=== PATIENT | female | born 1960 | race Caucasian/White ===

== ENCOUNTER 2018-03-04 23:37 | Inpatient (IN) | payer OTHER ==
[2018-03-05] MEDS ORDERED: Morphine 4 MG/ML VIAL ONE (00:25)
[2018-03-05] MEDS ORDERED: Dextrose 50% Abboject 50 ML SYRINGE SLOW IVP PRN (01:26)
[2018-03-05] MEDS ORDERED: Ondansetron HCl/PF 4 MG/2 ML Vial IVP PRN ×3 (01:26→12:27)
[2018-03-05] MEDS ORDERED: Ondansetron ODT 4 MG TAB PO PRN ×2 (01:26→12:27)
[2018-03-05] MEDS ORDERED: Dextrose 5% in Water 1,000 ML IV PRN (01:26)
[2018-03-05 01:38] LABS: #Monocytes 0.9 thou/uL (0.11-0.59); #Neutrophils 13.4 thou/uL (1.40-6.50); %Basophils 0.2 % (0.0-1.0); %Eosinophils 0.1 % (0.0-10.0); %Lymphocytes 6.4 % (21.0-51.0); %Neutrophils 87.3 % (42.0-75.0); Mean Corpuscular HGB CONC 34.3 g/dL (32.0-36.0); Mean Corpuscular Hemoglobin 30.8 pg (27.0-31.0); Mean Corpuscular Volume 89.6 fl (81.0-99.0); Mean Platelet Volume 6.3 fL (7.4-10.4); Platelet Count 228 thou/uL (130-400); RBC Distribution Width 11.2 % (11.5-14.5); Red Blood Cell (RBC) Count 3.57 mill/uL (4.20-5.40); White Blood Cell (WBC) Count 15.4 thou/uL (4.8-10.8)
[2018-03-05] MEDS ORDERED: traMADol HCl 50 MG TAB PO PRN (01:42)
[2018-03-05 02:24] LABS: ALT (SGPT) 16 U/L (8-55); AST (SGOT) 25 U/L (5-34); Albumin 4.2 g/dL (3.5-5.0); Alkaline Phosphatase 54 U/L (40-150); Anion Gap 9 mmol/L (10-20); BUN (Urea Nitrogen) 16 mg/dL (9.8-20.1); Bilirubin, Total 0.4 mg/dL (0.2-1.2); CK (CPK) 124 U/L (29-168); Calc. Creatinine Clearance 0 mL/min (70-130); Calcium 8.5 mg/dL (7.8-10.44); Carbon Dioxide 28 mmol/L (22-29); Chloride 104 mmol/L (98-107); Estimated GFR-MDRD 88; Globulin 2.7 g/dL (2.4-3.5); Glucose 133 mg/dL (70-105); Potassium 3.8 mmol/L (3.5-5.1); Protein, Total 6.9 g/dL (6.0-8.3); Sodium 137 mmol/L (136-145)
[2018-03-05 02:27] LABS: CKMB 0.7 ng/mL (0-6.6); Troponin I Less than 0.010 ng/mL (< 0.028)
--- NOTE | 2018-03-05 03:02 | HP ---
DATE OF ADMISSION: 03/05/2018 ATTENDING PHYSICIAN: Dr. Chapito Sosa. TRAUMA ACTIVATION: Not applicable. HISTORY OF PRESENT ILLNESS: Naveed Gunn is a 57-year-old female who presented to [facility] as a [place] transfer. Per patient, she was working in her garden when she was trying to remove her dog from the garden, tripped and fell landing on her hip. She was evaluated in the [facility], found to have a right hip fracture. Orthopedic Surgery was notified. Patient was transferred to [facility] and Trauma Services was asked to admit. Upon my evaluation, patient has a chief complaint of right hip pain rated as 6 or 7. Pain is worsened with movement and improved with pain medications. Patient states that she did not hit her head or lose consciousness at any time. She vocalizes no other complaint. ALLERGIES: COMPAZINE. HOME MEDICATIONS: Seroquel 50 mg at bedtime, Lexapro 10 mg at bedtime, Xanax 1 mg b.i.d. p.r.n., ibuprofen ogve-ugx-varvphs p.r.n. PAST MEDICAL HISTORY: Significant for anxiety, depression, osteoarthritis, rheumatoid arthritis. PAST SURGICAL HISTORY: Right shoulder and right knee surgery in 2012. SOCIAL HISTORY: She lives at home with her , ambulates independently. She is a current smoker, approximately 35 years, half pack per day. She endorses rare EtOH and occasional marijuana use. FAMILY HISTORY: Significant for a sister with CHF, status post AICD, breast cancer in mother who is from hepatitis C and a father with coronary artery disease, status post bypass. REVIEW OF SYSTEMS: A 10-point review of systems was performed and negative except as indicated in the HPI. PHYSICAL EXAMINATION: VITAL SIGNS: On evaluation include heart rate 83, blood pressure 136/75, O2 sat 100% on 1-2 liters via nasal cannula. GENERAL: A well-nourished, thin female in no acute distress, resting in bed. HEAD: Normocephalic, atraumatic. EYES: Pupils were PERRL. Extraocular movements are intact. NECK: Supple. Trachea is midline. CHEST/PULMONARY: Atraumatic. Normal breathing, symmetric rise. LUNGS: Clear to auscultation bilaterally. CARDIOVASCULAR: Regular rate and rhythm. No obvious murmurs, rubs, or gallops. GASTROINTESTINAL: Abdomen is atraumatic, soft, nontender, nondistended. Bowel sounds are positive. MUSCULOSKELETAL/BACK: Reported as being within normal limits. EXTREMITIES: Left upper extremity within normal limits. Right upper extremity with a posterior abrasion in the area of elbow. Pulses are 2+ bilaterally. Left lower extremity within normal limits. Pulses are 2+. Right lower extremity is shortened with swelling to the hip and thigh. She is neurovascularly intact distal to the side of her injury. Compartments are soft. There is tenderness to palpation of the anterior, posterior, and lateral thigh. NEUROLOGIC: GCS is 15. No focal deficit is noted. LABORATORY DATA: WBC 6.9, hemoglobin 12.0, hematocrit 36.2, platelet count 249, 000. Sodium 141, potassium 4.0, chloride 104, carbon dioxide 27, BUN 17, creatinine 0.8, glucose 125, AST and ALT within normal limits. Urinalysis pending. EKG: Sinus rhythm with nonspecific T-wave changes. RADIOLOGIC FINDINGS: Chest x-ray, official read is pending. Lungs appear hyperinflated with coarse interstitial markings. X-ray of the right femur shows a proximal femur fracture. Films from [facility], official read is unavailable, but there is obvious right proximal femur fracture and a right hip x-ray with the same. ASSESSMENT: 1. Status post mechanical ground level fall. 2. Proximal hip fracture. 3. Acute traumatic pain. 4. History of rheumatoid arthritis. 5. History of osteoarthritis. 6. History of anxiety and depression. 7. Nonspecific EKG. PLAN: Admit to Trauma Services. We have discussed the case with Orthopedic Surgery who plans for operative intervention later today. Followup pending laboratory items. Perioperative pain management initially with IV and PO analgesics. Postoperative PT and OT. DVT and gastritis prophylaxis as appropriate. Plans for admission were discussed with the patient at bedside who vocalized her understanding. All questions were answered at the time of this dictation. Trauma attending has been notified of admission. SWATI
[2018-03-05] MEDS: traMADol HCl 50 MG TAB PO SCH ×4 (03:10→20:21)
[2018-03-05] MEDS: Acetaminophen 500 MG TAB PO SCH ×4 (03:13→20:20)
[2018-03-05] MEDS: Sodium Chloride 0.9% 1,000 ML IV SCH ×3 (03:14→20:22)
[2018-03-05 04:10] VITALS: BMI 23.4
[2018-03-05] MEDS: Ketorolac Tromethamine 30 MG/ML VIAL IVP SCH ×3 (06:08→18:26)
[2018-03-05 07:30] LABS: Bilirubin Negative (Negative); Blood, Urine Trace (Negative); Clarity CLEAR (Clear); Glucose, Urine (Dipstick) Negative (Negative); Leukocyte Negative (Negative); Nitrite Negative (Negative); Protein, Urine (Dipstick) Negative (Neg-Trace); Specific Gravity, Urine 1.021 (1.002-1.036); Urobilinogen 0.2 mg/dL (0.2-1.0)
[2018-03-05 07:31] LABS: Bacteria/HPF None Seen HPF (None Seen); Hyaline Casts/LPF 0-3 HYALINE CAST LPF (0-3 Hyaline); Pathc Cast-AUWi Flag 0.58 (0-2.49); Squamous Epithelial None Seen HPF (0-3); WBC/HPF 0-3 HPF (0-3)
--- NOTE | 2018-03-05 09:12 | HP ---
CHIEF COMPLAINT: Right thigh pain. HISTORY OF PRESENT ILLNESS: The patient is a 57-year-old female who was climbing around on a garden that was about 3-4 feet high when she slipped and fell. She says she actually fell on her left hip, but her right hip became excruciatingly painful and swollen and she could not put weight on it. She was taken to the emergency room in [place] where they did x-rays and noted she had a proximal right femur fracture. PAST MEDICAL HISTORY: Depression, anxiety. PAST SURGICAL HISTORY: She has had a right rotator cuff repair. MEDICATIONS: She takes Xanax, Seroquel, and Lexapro. ALLERGIES: She has no known drug allergies. SOCIAL HISTORY: She smokes about 1 pack per day. No alcohol. She is . She lives just outsi [facility]. FAMILY HISTORY: Unremarkable. PHYSICAL EXAMINATION: VITAL SIGNS: Temperature 98.6, pulse 59, blood pressure 132/74. GENERAL: She is a well-developed, well-nourished female in traction, awake, alert. HEENT: Unremarkable. LUNGS: Clear. HEART: Regular rate and rhythm. ABDOMEN: Soft, nondistended, nontender. EXTREMITIES: She has a soft tissue swelling of the right thigh, it is tender in the proximal thigh o n the right. She has good sensation. Normal pulses. Pelvis appears okay. No tenderness. The left side is unremarkable. IMAGING: EKG shows sinus bradycardia at 63. X-ray shows proximal femur fracture. ASSESSMENT: Proximal femur fracture on the right. PLAN: Per Orthopedics.
[2018-03-05] MEDS: Morphine 4 MG/ML VIAL SLOW IVP PRN ×3 (09:45→23:45)
--- NOTE | 2018-03-05 10:19 | RAD ---
PORTABLE SUPINE CHEST 1 VIEW: Date: 03/05/18 HISTORY: 57-year-old female with history of preoperative clearance. FINDINGS: Heart size is normal. The lunges are clear. Mild biapical pleural thickening. IMPRESSION: Mild biapical pleural thickening. No acute intrathoracic disease. POS: [facility]
--- NOTE | 2018-03-05 10:20 | RAD ---
RIGHT FEMUR 1 VIEW: Date: 03/05/18 HISTORY: 57-year-old female with history of right femoral pain. FINDINGS: There is a markedly comminuted fracture of the intertrochanteric and subtrochanteric region of the ri ght femur with considerable foreshortening and malalignment. IMPRESSION: Markedly comminuted intertrochanteric and subtrochanteric femoral fracture with foreshortening and ma lalignment. POS: [facility]
[2018-03-05] MEDS ORDERED: Neomycin-Polymyxin 1 ML AMP ONE (10:49)
[2018-03-05] MEDS ORDERED: Midazolam HCl 2 mg/2 ml Vial ONE (10:59)
[2018-03-05] MEDS ORDERED: CEFAZOLIN/Water 2 GM/20 ML SYRINGE ONE (11:00)
[2018-03-05] MEDS ORDERED: Fentanyl 100 MCG/2 ML VIAL ONE ×2 (11:16→12:36)
[2018-03-05] MEDS ORDERED: PROPOFOL 20 ML ONE (11:17)
[2018-03-05] MEDS ORDERED: ePHEDrine/0.9% NaCl/PF SYRINGE 50 mg/10 ml ONE ×2 (11:25→14:19)
[2018-03-05] MEDS ORDERED: Fleet Enema 133 ML BOT PR PRN (12:27)
[2018-03-05] MEDS ORDERED: Promethazine HCl 25 MG/ML VIAL SLOW IVP PRN (12:27)
[2018-03-05] MEDS ORDERED: Bisacodyl 10 MG SUPP PR PRN (12:27)
[2018-03-05] MEDS ORDERED: Milk Of Magnesia 30 ML UDCUP PO PRN (12:27)
[2018-03-05] MEDS ORDERED: Promethazine HCl 25 MG/ML VIAL IM PRN (12:27)
[2018-03-05] MEDS ORDERED: Cepastat Lozenges 1 LOZ PO PRN (12:27)
--- NOTE | 2018-03-05 13:24 | RAD ---
RIGHT HIP 2 VIEWS: Date: 03/05/18 HISTORY: Comminuted right proximal femoral fracture. FINDINGS/IMPRESSION: Two spot fluoroscopic intraoperative images of the right hip demonstrate interval reduction and inter nal fixation of the comminuted right proximal femoral fracture since the previous day's exam. POS: [facility]
--- NOTE | 2018-03-05 13:42 | OP ---
DATE OF OPERATION: 03/05/2018 PREOPERATIVE DIAGNOSIS: Subtrochanteric fracture of the right proximal femur. POSTOPERATIVE DIAGNOSIS: Subtrochanteric fracture of the right proximal femur. PROCEDURE: Open reduction and internal fixation of subtrochanteric fracture of the right hip. SURGEON: Reynold Maldonado M.D. ANESTHESIA: General. TECHNIQUE: The patient was given preoperative IV antibiotics, taken to the operating room and placed in the supine position. Satisfactory general anesthesia was performed. The patient was placed on [facility] fracture table. All bony prominences were well padded. Traction was applied to a well-padded rig ht foot and ankle and C-arm confirmed good alignment of the subtrochanteric fracture of the right pro ximal femur. The lateral aspect of the right hip and thigh was sterilely prepped and draped in usual fashion. A longitudinal incision was made approximately 3 inches in length, superior to the greater trochanter, and under fluoroscopic visualization, a guidewire was placed into the greater trochanter and then was overreamed. Because of the small size of the patient's intramedullary canal, a guidewi re was placed down the distal femur and it was sequentially reamed up to 11.5 mm. A short trochanter ic fixation nail that measured 170 mm in length that was 10 mm in diameter was then inserted down to the appropriate length. Again, this was verified with the C-arm, AP, lateral, and multiple oblique v iews. Through a separate 2-inch incision in the lateral aspect of the thigh, using the guide still a ttached to the dennis, guide pin was placed up through the femoral neck and into the head. The lateral cortex was overreamed and a 100-mm helical blade was inserted into the femoral neck and head. This w as then locked into place. Through the same 2-inch incision, a 5.0 locking screw was inserted into t distal aspect of the dennis and in the shaft of the femur. This provided excellent fixation and redu ction of the subtrochanteric fracture. The wounds were then copiously irrigated with antibiotic solu tion. The wounds were then closed using #2 Vicryl for the iliotibial band, 0 Vicryl for the fat and subcutaneous tissue, and skin was closed with skin madan. Sterile dressing was applied. The patie nt was taken off of the fracture table. She was awakened, extubated, and transferred to recovery [facility] in stable condition. ESTIMATED BLOOD LOSS: 75 mL. COMPLICATIONS: None.
[2018-03-05] MEDS ORDERED: PROPOFOL 200 MG/20 ML VIAL ONE (14:19)
--- NOTE | 2018-03-05 14:27 | CON ---
DATE OF CONSULTATION: 03/05/2018 HISTORY OF PRESENT ILLNESS: Ms. Gunn is a 57-year-old white female, who was working in her garden w hen she tripped over her dog and fell directly onto her hip. She had immediate pain in the right hip and inability to ambulate. She had no neurologic complaints in the right lower extremity, no other complaints elsewhere. She was taken to [facility] where she was noted to have a severe ly displaced subtrochanteric fracture of the right proximal femur. She was transferred here for furt her evaluation and management. PAST MEDICAL HISTORY/MEDICAL ILLNESSES: Depression and anxiety. MEDICATIONS: Xanax, Seroquel, Lexapro. PAST SURGICAL HISTORY: Status post right rotator cuff repair. ALLERGIES: None. SOCIAL HISTORY: The patient smokes 1 pack per day. No alcohol. She is . PHYSICAL EXAMINATION: GENERAL: A very pleasant female, alert and oriented x3. VITAL SIGNS: Temperature 98.6, pulse 70, respiratory rate 16, blood pressure 128/72. HEENT EXAM: Unremarkable for age. Cranial nerves II-XII are grossly intact. NECK: Has good range of motion without pain. LUNGS: Clear bilaterally. HEART: Regular rate and rhythm. ABDOMEN: Soft, nontender, bowel sounds positive. GENITOURINARY: Not done. EXTREMITY EXAM: The patient is able to move both upper extremities and left lower extremity without pain. The right lower extremity is shortened and externally rotated. She does have good peripheral pulses. Able to flex and extend her ankle and toes well. Good sensation. IMAGING: X-rays of the right hip shows a severely shortened, displaced subtrochanteric fracture of t he right hip. No arthritic changes in the hip joint. IMPRESSION: 1. Displaced subtrochanteric fracture, right hip. 2. Depression. 3. Anxiety disorder. PLAN: The patient will require open reduction and internal fixation of the right proximal femur. Pl an on using a trochanteric fixation nail. Potential risks with the condition of surgery include but are not limited to infection, bleeding, pain, damage to blood vessels or nerves, nonunion, malunion. The patient may require additional surgery, DVT and PE formation. Patient's questions were answered and agreed to the procedure.
[2018-03-05] MEDS: Nicotine 14 MG PATCH TOP SCH (14:39)
[2018-03-05] MEDS: CEFAZOLIN/Water 2 GM/20 ML SYRINGE SLOW IVP SCH (20:21)
[2018-03-05] MEDS: Senokot S 8.6-50 MG TAB PO SCH (20:23)
[2018-03-05] MEDS: Famotidine 20 MG TAB PO SCH (20:23)
[2018-03-05] MEDS ORDERED: Ferrous Gluconate 324 MG TAB PO SCH (21:00)
[2018-03-06] MEDS: Ketorolac Tromethamine 30 MG/ML VIAL IVP SCH ×2 (01:00→05:00)
[2018-03-06] MEDS: traMADol HCl 50 MG TAB PO SCH ×4 (02:02→21:30)
[2018-03-06] MEDS: Acetaminophen 500 MG TAB PO SCH ×4 (02:02→21:00)
[2018-03-06 04:42] LABS: #Eosinphils 0.1 thou/uL (0.0-0.7); #Lymphocytes 1.2 thou/uL (1.20-3.40); #Monocytes 0.9 thou/uL (0.11-0.59); #Neutrophils 5.1 thou/uL (1.40-6.50); %Basophils 0.3 % (0.0-1.0); %Eosinophils 0.8 % (0.0-10.0); %Monocytes 11.8 % (0.0-10.0); %Neutrophils 70.1 % (42.0-75.0); Hemoglobin 7.3 g/dL (12.0-16.0); Mean Corpuscular HGB CONC 33.5 g/dL (32.0-36.0); Mean Corpuscular Hemoglobin 30.9 pg (27.0-31.0); Mean Corpuscular Volume 92.4 fl (81.0-99.0); Mean Platelet Volume 6.6 fL (7.4-10.4); Platelet Count 137 thou/uL (130-400); RBC Distribution Width 11.2 % (11.5-14.5); Red Blood Cell (RBC) Count 2.35 mill/uL (4.20-5.40); White Blood Cell (WBC) Count 7.3 thou/uL (4.8-10.8)
[2018-03-06 04:53] LABS: Anion Gap 6 mmol/L (10-20); BUN (Urea Nitrogen) 7 mg/dL (9.8-20.1); CK (CPK) 478 U/L (29-168); Calc. Creatinine Clearance 98 mL/min (70-130); Calcium 7.8 mg/dL (7.8-10.44); Carbon Dioxide 31 mmol/L (22-29); Chloride 107 mmol/L (98-107); Estimated GFR-MDRD Greater than 90; Glucose 128 mg/dL (70-105); Magnesium 1.9 mg/dL (1.6-2.6); Phosphorus 2.2 mg/dL (2.3-4.7); Sodium 140 mmol/L (136-145)
[2018-03-06] MEDS: CEFAZOLIN/Water 2 GM/20 ML SYRINGE SLOW IVP SCH (04:54)
[2018-03-06] MEDS ORDERED: Sodium Phosphate 15 MMOL in Sodium Chloride 0.9% 250 ML 250 ML IVPB SCH (07:45)
[2018-03-06] MEDS ORDERED: traMADol HCl 50 MG TAB PO SCH (08:00)
[2018-03-06] MEDS ORDERED: Polyethylene Glycol 3350 17 GM Packet PO SCH (09:00)
[2018-03-06] MEDS: Multivitamin W/ Minerals 1 TAB PO SCH (09:51)
[2018-03-06] MEDS: Famotidine 20 MG TAB PO SCH ×2 (09:51→21:19)
[2018-03-06] MEDS: Enoxaparin Sodium 30 MG/0.3 ML SYRINGE SC SCH (09:52)
[2018-03-06] MEDS: Senokot S 8.6-50 MG TAB PO SCH ×3 (09:52→21:19)
[2018-03-06] MEDS: Ferrous Sulfate 325 MG TAB PO SCH ×2 (09:55→17:24)
[2018-03-06] MEDS ORDERED: traMADol HCl 50 MG TAB PO PRN (10:24)
--- NOTE | 2018-03-06 12:01 | PRG-2 ---
DATE OF SERVICE: 03/06/2018 SUBJECTIVE: This is a 57-year-old female who presented to us status post open reduction internal fixation of subtrochanteric fracture of the right hip, postop day 1. The patient states that she had fell while working in her garden associated with some movement with one of her dogs. The patient does complain of right hip pain of an 8 or 9 when ambulating and a pain of essentially 0 while she is sitting down. The patient has been working with PT and OT with increased abilities and tolerance of movement. The patient does state that she does not like to have morphine pain medicines as it was giving her headaches and did not want to have any more tramadol as it was making her drowsy. No other complaints were offered this morning. OBJECTIVE: VITAL SIGNS: Temperature 98.0, pulse was 77, respirations were 16, oxygen saturation was 98% on room air, BP was 105/66. GENERAL: Well-appearing female in no acute distress, resting in the chair. PULMONARY: Normal work of breathing. Symmetrical rise. MUSCULOSKELETAL: Moves all 4 limbs symmetrically. NEUROLOGIC: No focal deficit is noted. LABORATORY FINDINGS: Sodium of 140, potassium 4.0, chloride 107, BUN 7, creatinine 0.61, creatinine kinase 478. White blood cells 7.3, hemoglobin 7.3, hematocrit is 21.7. ASSESSMENT: 1. Status post mechanical ground level fall. 2. Status post internal fixation of subtrochanteric fracture of right hip. Post op day 1. 3. Proximal hip fracture. 4. Acute traumatic pain. 5. Acute blood loss anemia. 6. History of rheumatoid arthritis. 7. History of osteoarthritis. 8. History of anxiety and depression. PLAN: The patient did have an acute drop in her hemoglobin and became symptomatic and so she will be receiving a transfusion of 1 unit of packed red blood cells today with followup labs pending. The patient will continue perioperative pain management to not include morphine with a decreased dose of tramadol to ensure tolerance. The patient is going to continue with PT and OT. The patient did get counseled on possibility of inpatient rehab placement as her home situation would not be beneficial and would not be successful with all of her dogs at home with a limited amount of help. The patient has been agreeable to rehab screening at this time for attempted to be placed in an inpatient rehab facility for 10-14 days. The patient is in agreement with this plan. All questions were answered at the time of this dictation. This case was discussed with the Trauma attending. SWATI
[2018-03-06] MEDS: Ibuprofen 600 MG TAB PO SCH ×2 (12:24→18:57)
[2018-03-06] MEDS: Nicotine 14 MG PATCH TOP SCH (12:26)
[2018-03-06] MEDS: Ascorbic Acid 500 mg Chewable Tablet PO SCH (17:24)
[2018-03-07] MEDS: Acetaminophen 500 MG TAB PO SCH ×3 (01:19→14:53)
[2018-03-07] MEDS: Ibuprofen 600 MG TAB PO SCH ×2 (01:36→10:11)
[2018-03-07 05:23] LABS: Mean Corpuscular HGB CONC 34.7 g/dL (32.0-36.0); Mean Corpuscular Hemoglobin 30.5 pg (27.0-31.0); Mean Corpuscular Volume 87.9 fl (81.0-99.0); Mean Platelet Volume 7.2 fL (7.4-10.4); Platelet Count 156 thou/uL (130-400); RBC Distribution Width 12.3 % (11.5-14.5); Red Blood Cell (RBC) Count 2.96 mill/uL (4.20-5.40); White Blood Cell (WBC) Count 8.5 thou/uL (4.8-10.8)
[2018-03-07] MEDS: traMADol HCl 50 MG TAB PO SCH ×2 (05:26→10:11)
[2018-03-07 05:31] LABS: Anion Gap 6 mmol/L (10-20); BUN (Urea Nitrogen) 7 mg/dL (9.8-20.1); Calc. Creatinine Clearance 92 mL/min (70-130); Calcium 8.5 mg/dL (7.8-10.44); Carbon Dioxide 31 mmol/L (22-29); Chloride 105 mmol/L (98-107); Estimated GFR-MDRD Greater than 90; Glucose 101 mg/dL (70-105); Magnesium 1.9 mg/dL (1.6-2.6); Sodium 139 mmol/L (136-145)
[2018-03-07 05:41] LABS: Phosphorus 1.8 mg/dL (2.3-4.7)
[2018-03-07] MEDS: Ascorbic Acid 500 mg Chewable Tablet PO SCH (06:42)
[2018-03-07] MEDS ORDERED: Potassium Phosphate 30 MMOL in Sodium Chloride 0.9% 500 ML IVPB SCH (07:00)
[2018-03-07 08:15] VITALS: TEMP 98.3
[2018-03-07] MEDS: Enoxaparin Sodium 30 MG/0.3 ML SYRINGE SC SCH (08:37)
[2018-03-07] MEDS: Ferrous Sulfate 325 MG TAB PO SCH (08:37)
[2018-03-07] MEDS: Famotidine 20 MG TAB PO SCH (08:37)
[2018-03-07] MEDS: Multivitamin W/ Minerals 1 TAB PO SCH (08:37)
[2018-03-07] MEDS: Nicotine 14 MG PATCH TOP SCH (11:41)
--- NOTE | 2018-03-07 12:27 | DIS ---
DATE OF ADMISSION: 03/05/2018 DATE OF DISCHARGE: 03/07/2018 HISTORY OF PRESENT ILLNESS: Please see the admission history and physical. HOSPITAL COURSE: The patient initially evaluated in the emergency room after being transferred from a different emergency room. She had a displaced subtrochanteric fracture of the right hip. The petrona ent was worked up medically and found to be stable for surgery. On 03/05/2018, the patient was given perioperative IV antibiotics, taken to the operating room where she underwent open reduction interna l fixation of the subtrochanteric fracture using a trochanteric fixation nail. The patient's hemoglo bin dropped to 7.2. She was given 1 unit of blood and the following day, her hemoglobin was 9. Petrona borrego was able to ambulate with a walker safely with physical therapy and was able to ambulate well ove r 100 feet at one time. The right lower extremity remained neurovascularly intact. The patient justin ined afebrile. Vital signs remained stable. The patient will be discharged home. She will follow gerber mercado in my office in 2 weeks. DISCHARGE MEDICATIONS: Tramadol 50 mg 1-2 every 6 hours as needed for pain, #60 with 2 refills.
[2018-03-07 13:38] VITALS: BP 100/63
== END 2018-03-07 17:03 | disposition home or self-care (01) | DRG 482 ==
LOC: ERS 23:37 → SJJU 03-05 01:23
PROVIDERS: ADMIT Surgery; ATTEND Surgery
PROC: 0QS604Z Reposition Right Upper Femur with Internal Fixation Device, Open Approach (ICD-10-PCS; principal; 2018-03-05)
DX: S72.21XA Displaced subtrochanteric fracture of right femur, initial encounter for closed fracture (principal); W01.0XXA Fall on same level from slipping, tripping and stumbling without subsequent striking against object, initial encounter; Y93.H2 Activity, gardening and landscaping; Y92.017 Garden or yard in single-family (private) house as the place of occurrence of the external cause; F17.210 Nicotine dependence, cigarettes, uncomplicated; G89.11 Acute pain due to trauma; M06.9 Rheumatoid arthritis, unspecified; M19.90 Unspecified osteoarthritis, unspecified site; F41.9 Anxiety disorder, unspecified; F32.9 Major depressive disorder, single episode, unspecified
CPT/HCPCS: 36415; 36430; 71045; 76001; 80048; 80053; 81003; 81015; 82550; 82553; 83735; 84100; 84484; 85025; 85027; 86850; 86900; 86901; 93005; 94640; 96374; C1713; C1769; G0390; G8978-GP-CL; G8979-GP-CJ; G8987-GO-CK; G8988-GO-CJ; J1650; J1885; J2250; J2270; J2704; J3010; J7050; J7620; P9016